=== PATIENT | female | born 1960 | race Hispanic/Latino ===

== ENCOUNTER 2021-10-16 09:45 | Day surgery (SDC) | payer OTHER ==
[2021-10-15 16:17] LABS: HEMATOCRIT 35.9 % (36-48); MEAN CORPUSCULAR HGB CONC 31.5 g/dL (32.0-36.0); MEAN CORPUSCULAR VOLUME 95.2 fL (79-99); RED BLOOD CELL COUNT(AUTO) 3.77 MIL/uL (4.00-5.50); RED CELL DISTRIBUTION WIDTH 12.8 % (11.0-15.5); WHITE BLOOD COUNT (AUTO) 7.9 K/uL (4.8-10.8)
[2021-10-15 16:40] LABS: CREATININE 2.7 mg/dL (0.5-1.5)
[2021-10-15 16:56] LABS: INR 1.03 (0.85-1.15); PARTIAL THROMBOPLASTIN TIME 21.2 SEC (26.3-35.5); PROTHROMBIN TIME 10.7 SEC (9.6-11.6)
[2021-10-15 18:50] VITALS: BP 175/67
[2021-10-16] VITALS (16 sets, daily range): BP systolic 140–162; BP diastolic 69–79
[~2021-10-16] VITALS: Ht 154.9 cm; Wt 79.7 kg
[~2021-10-16 09:45] MED LIST: ATOR40TA71 PO; CEFAZOLIN SODIUM 1 GM VIAL IVP SCH; FENO145T26 PO; LEVO100C4 PO; LINA5TAB PO; METO100T14 PO; TRAZ-185 PO
[2021-10-16] MEDS ORDERED: 0.9%NACL 1000ML 1,000 ML IV ONE (10:12)
[2021-10-16] MEDS ORDERED: 0.9% NACL 500ML IV.SOLN 500 ML IV ONE (10:57)
[2021-10-16] MEDS ORDERED: CEFAZOLIN SODIUM 1 GM VIAL ONE (12:27)
[2021-10-16] MEDS ORDERED: ROPIVACAINE 0.5% 5MG/ML 30ML IJ ONE (13:49)
[2021-10-16] MEDS ORDERED: DEXAMETHASONE SOD PHOSPHATE 10MG/ML 1ML VIAL ONE (13:57)
[2021-10-16] MEDS ORDERED: SUCCINYLCHOLINE 200MG/10ML SYR ONE (13:57)
[2021-10-16] MEDS ORDERED: LIDOCAINE PF 100MG/5ML (2%) SYRINGE 5ML ONE (13:57)
[2021-10-16] MEDS ORDERED: ONDANSETRON 4MG INJ ONE (13:58)
[2021-10-16] MEDS ORDERED: GLYCOPYRROLATE 1 MG/5 ML SYRINGE ONE (13:58)
[2021-10-16] MEDS ORDERED: PROPOFOL 10 MG/ML 20ML VIAL IV ONE (13:58)
[2021-10-16] MEDS ORDERED: FENTANYL CITRATE PF 50 MCG/1 ML 2ML VIAL ONE (13:58)
[2021-10-16] MEDS ORDERED: NEOSTIGMINE 5MG/5ML SYR IV ONE (13:58)
[2021-10-16] MEDS ORDERED: ROCURONIUM 10MG/1ML SYR 10 MG/ML ML ONE (13:58)
[2021-10-16] MEDS ORDERED: MIDAZOLAM HCL 1 MG/ML 2ML VIAL ONE ×2 (13:58→15:14)
[2021-10-16] MEDS ORDERED: BUPIVACAINE/PF 0.25% 30ML VIAL IJ ONE ×2 (14:25→15:39)
[2021-10-16] MEDS ORDERED: LIDOCAINE HCL 1% 20 ML VIAL ONE (14:25)
[2021-10-16] MEDS ORDERED: CEFAZOLIN SODIUM 2 GM VIAL IV ONE (14:30)
[2021-10-16] MEDS ORDERED: LIDOCAINE HCL 1% 20 ML VIAL INJ ONE (15:39)
== END 2021-10-16 17:30 | disposition home or self-care (01) ==
LOC: DAH 09:45
PROVIDERS: ATTEND Thoracic Surgery (Cardiothoracic Vascular Surgery)
DX: E11.22 Type 2 diabetes mellitus with diabetic chronic kidney disease (principal); I12.0 Hypertensive chronic kidney disease with stage 5 chronic kidney disease or end stage renal disease; N18.6 End stage renal disease; E03.9 Hypothyroidism, unspecified; E78.5 Hyperlipidemia, unspecified; F32.A Depression, unspecified; Z99.2 Dependence on renal dialysis; Z98.51 Tubal ligation status; Z98.890 Other specified postprocedural states; Z98.891 History of uterine scar from previous surgery
CPT/HCPCS: 36415 ×2; 36818; 64415; 71045; 76942; 80048; 82948 ×3; 84132; 85027; 85610; 85730; 86850; 86870; 86900; 86901; 86905 ×2; 86922; 87635; 93005; A4213; A4215; A4221; A4222; A4223; A4452; A4649; A4663; A4930; A6260; C1713 ×2; C9803; G0168; J0330; J0690 ×3; J1100; J1644; J2001; J2250 ×2; J2405; J2704; J2710; J2795; J3010; J3490 ×3; J7030 ×2; J7040; J7120

== ENCOUNTER → 2022-09-16 | Outpatient (CLI) | payer OTHER ==
[~2022-09-16] MED LIST changes: -CEFAZOLIN SODIUM 1 GM VIAL IVP SCH
== END | disposition home or self-care (01) ==
LOC: SHCH 14:20
PROVIDERS: ATTEND Internal Medicine Cardiovascular Disease
DX: I73.9 Peripheral vascular disease, unspecified (principal)
CPT/HCPCS: 93925

== ENCOUNTER → 2022-09-30 | Outpatient (CLI) | payer OTHER | END | disposition home or self-care (01) | LOC: RAH 11:44 | PROVIDERS: ATTEND Internal Medicine Cardiovascular Disease | DX: R00.0 Tachycardia, unspecified (principal); R00.2 Palpitations | CPT/HCPCS: 93306 ==